=== PATIENT | female | born 1970 | race Caucasian/White ===

== ENCOUNTER 2019-05-29 10:22 | Observation (INO) | payer OTHER, SELFPAY ==
[2019-05-29] VITALS (23 sets, daily range): BP systolic 94–132; BP diastolic 49–79; PULSE 62–85; RESP 13–21; TEMP 36.3–37.1; O2SAT 93–100; BMI 33.7
--- NOTE | 2019-05-29 10:37 | ED_ITS ---
HPI - Female Genitourinary General: Chief complaint: Vaginal Bleeding Stated complaint: VAGINAL PAIN Time Seen by Provider: 05/29/19 10:37 History of Present Illness: HPI Narrative: Patient had an evisceration repair for a hysterectomy dehiscence done in March. Patient had sexual intercourse this morning with her spouse and noticed some bleeding and discomfort. Patient came in for further evaluation. Patient appears well. Patient appears in mild to moderate pain. Reports no bleeding at this time. Review of Systems General: Reports: 10 or more systems reviewed and unremarkable except in HPI and below : Reports: vaginal bleeding PFSH ED PFSH: Statuses (acute, chronic, etc) shown below reflect problem list status as previously entered and may not be historically accurate Medical History Hypothyroidism (Chronic) Surgical menopause (Chronic) Taking Effexor Surgical History History of hysterectomy (Acute 01/11/19) TLH with BSO. By Dr. Kang in [facility] Hx of tonsillectomy (Acute) S/P breast reconstruction, bilateral (Acute) Following prophylactic mastectomy S/P section (Acute 1996) with tubal ligation S/P laparoscopy (Acute 03/28/19) With vaginal cuff repair of vaginal cuff dehiscence with small bowel evisceration S/P mastectomy, bilateral (Acute) Prophylactic. Had pre-cancerous breast biopsy S/P tubal ligation (Acute 1996) Performed at time of section Family History Mother Breast cancer Diabetes Thyroid disease Hypertension Grandmother Breast cancer Family/Other Breast cancer 2 maternal aunt Cervical cancer maternal aunt Father Diabetes Heart disease Thyroid disease Hypertension Sister Hypertension Other Suicide Social History Smoking and tobacco status: former smoker Second hand smoke exposure: No Alcohol intake: current Alcohol intake frequency: holidays/special occasions only Alcohol type: wine Desire information about alcohol rehabilitation?: No Desire information about substance/drug rehabilitation?: No Counseling given: No Physical Exam Const: COMMON NORMALS: no apparent distress and oriented x3 GENERAL APPEARANCE: cooperative HENMT: COMMON NORMALS: normocephalic, external ears normal, EAC's normal, TM's normal bilaterally and external nose normal HEAD & SCALP: normal to inspection and normocephalic FACE & SINUS: normal facial exam NOSE: external nose normal GENERAL EAR: hearing not grossly impaired EXTERNAL EAR: Yes external ears normal EXTERNAL AUDITORY CANAL: EAC's normal TYMPANIC MEMBRANE: TM's normal bilaterally MOUTH: oral and palatal mucosa normal THROAT: posterior oropharynx normal Eye: COMMON NORMALS: PERRL and EOMs intact bilaterally PUPIL: Yes PERRL Neck/C-Spine: COMMON NORMALS: full ROM and no lymphadenopathy Lymph: LYMPHATIC: no lymphedema noted Chest: COMMONS NORMALS: inspection of chest normal and palpation of chest normal Resp: COMMON NORMALS: normal respiratory effort and clear to auscultation bilaterally AUSCULTATION: clear to auscultation bilaterally Cardio: COMMON NORMALS: regular rate and regular rhythm RATE: regular rate RHYTHM: regular rhythm GI: PALPATION: Yes tender (suprapubic) : SPECULUM EXAM - VAGINA: Yes other (gross blood in vault) SPECULUM EXAM - CERVIX: Yes other Back/Pelvis: COMMON NORMALS: thoracic and lumbar spine normal to inspection Extremity: COMMON NORMALS: normal to inspection GENERAL: No edema Neuro: COMMON NORMALS: oriented x3, moves all extremities and no focal motor deficits Psych: COMMON NORMALS: mental status grossly normal and cooperative Skin: COMMON NORMALS: no rashes or lesions noted GENERAL SKIN EXAM: no rashes or lesions noted Course ED course: 1110, Dr. Tello, OB-FELTING MACHINE OPERATOR HELPER locum, was present during vaginal exam and assumed care after noticing large amount of sanguinous fluid in vault, after suction of fluid small bowel was noted in the vaginal vault. He requested the general surgeon be called and discussed with patient going back into surgery for repeat repair of dihesced cuff. Vital Signs: Vital signs: Vital Signs Temperature 97.5 F L 05/29/19 15:00 Pulse Rate 85 05/29/19 15:00 Respiratory Rate 21 H 05/29/19 15:00 Blood Pressure 120/52 05/29/19 15:00 Pulse Oximetry 96 05/29/19 15:00 MDM - Female MDM Narrative: Medical decision making narrative: Patient comes in with c oncerns of dehiscence of vaginal hysterectomy. Patient had a similar episode back in March that was repaired. Patient was having sexual intercourse this morning and felt pain and then some bleeding was noted afterwards. Exam notes abdomen soft some suprapubic tenderness. Respirations were even lungs were clear to auscultation. Vital signs were stable. On pelvic exam it was noted gross amount of sanguineous fluid in the vaginal vault, Dr. Tello was present during the exam and assumed care and with further evaluation noted bowel present in the vaginal vault. Is apparent that patient has a repeat wound dehiscence of a vaginal hysterectomy surgery. Dr. Ashley was further consulted for secondary care and surgery. Patient was taken to surgery for further treatment and evaluation under Dr. Mejia guidance. Lab Data: Labs: Lab Results 05/29/19 05/29/19 05/29/19 Range/Units 11:23 11:43 11:43 WBC 3.6 L (4.0-10.0) 10^3/ uL RBC 4.45 (4.1-5.3) 10^6/u L Hgb 12.9 (11.5-15.3) g/dL Hct 39.4 (37.0-47.0) % MCV 88.5 (81-99) fL MCH 29.0 (28.0-34.0) pg MCHC 32.7 (30.0-36.0) g/dL RDW 13.1 (12.1-15.1) % Plt Count 180 (130-400) 10^3/c mm MPV 9.8 (7.4-10.4) fL Neut % (Auto) 68.0 % Lymph % (Auto) 24.0 % [place] % (Auto) 7.7 % Eos % (Auto) 0.0 % Baso % (Auto) 0.0 % Neut # (Auto) 2.5 (1.8-7.7) 10^3/u L Lymph # (Auto) 0.9 (0.8-4.8) 10^3/u L [place] # (Auto) 0.3 (0.2-0.9) 10^3/u L Eos # (Auto) 0.0 (0.0-0.8) 10^3/u L Baso # (Auto) 0.0 (0.0-0.1) 10^3/u L Nucleated RBC % (a uto) 0 % Nucleated RBCs # 0.0 /100WBC Sodium (136-145) mmol/L Potassium (3.5-5.1) mmol/L Chloride (98-107) mmol/L Carbon Dioxide (22-29) mmol/L Anion Gap (5-19) BUN (6-20) mg/dL Creatinine (0.5-0.9) mg/dL GFR Calculation (90-130) mL/min Glucose (65-115) mg/dL Calcium (8.5-10.5) mg/dL Total Bilirubin (0.15-1.2) mg/dL AST (0-32) U/L ALT (0-33) U/L Alkaline Phosphata se (35-105) IU/L Total Protein (6.6-8.7) g/dL Albumin (3.5-5.2) g/dL Globulin (1.3-4.6) g/dL Urine Color Red (Yellow) Urine Appearance Bloody A (CLEAR) Urine pH 8 H (5-7) Ur Specific Gravit y 1.015 (1.005-1.030) Urine Protein 3+ H (Negative) Urine Glucose (UA) Norm (Normal) Urine Ketones Negative (Negative) Urine Occult Blood 3+ H (Negative) Urine Nitrate Negative (Negative) Urine Bilirubin Neg (NEGATIVE) Urine Urobilinogen Norm (Negative) mg/dL Ur Leukocyte Sia ase Negative (Negative) Urine RBC >100 H (0-2) /hpf Urine WBC 15-25 H (0-5) /hpf Ur Squamous Epith Cells 5-10 H (0-5) Amorphous Sediment Trace Urine Bacteria 1+ H (NONE) Urine Mucus Trace Blood Type B Negative Antibody Screen Negative 05/29/19 Range/Units 11:43 WBC (4.0-10.0) 10^3/ uL RBC (4.1-5.3) 10^6/u L Hgb (11.5-15.3) g/dL Hct (37.0-47.0) % MCV (81-99) fL MCH (28.0-34.0) pg MCHC (30.0-36.0) g/dL RDW (12.1-15.1) % Plt Count (130-400) 10^3/c mm MPV (7.4-10.4) fL Neut % (Auto) % Lymph % (Auto) % [place] % (Auto) % Eos % (Auto) % Baso % (Auto) % Neut # (Auto) (1.8-7.7) 10^3/u L Lymph # (Auto) (0.8-4.8) 10^3/u L [place] # (Auto) (0.2-0.9) 10^3/u L Eos # (Auto) (0.0-0.8) 10^3/u L Baso # (Auto) (0.0-0.1) 10^3/u L Nucleated RBC % (a uto) % Nucleated RBCs # /100WBC Sodium 141 (136-145) mmol/L Potassium 4.1 (3.5-5.1) mmol/L Chloride 105 (98-107) mmol/L Carbon Dioxide 25 (22-29) mmol/L Anion Gap 15.1 (5-19) BUN 11 (6-20) mg/dL Creatinine 0.5 (0.5-0.9) mg/dL GFR Calculation 132.2 H (90-130) mL/min Glucose 104 (65-115) mg/dL Calcium 10.8 H (8.5-10.5) mg/dL Total Bilirubin 0.5 (0.15-1.2) mg/dL AST 31 (0-32) U/L ALT 49 H (0-33) U/L Alkaline Phosphata se 116 H (35-105) IU/L Total Protein 6.6 (6.6-8.7) g/dL Albumin 4.0 (3.5-5.2) g/dL Globulin 2.6 (1.3-4.6) g/dL Urine Color (Yellow) Urine Appearance (CLEAR) Urine pH (5-7) Ur Specific Gravit y (1.005-1.030) Urine Protein (Negative) Urine Glucose (UA) (Normal) Urine Ketones (Negative) Urine Occult Blood (Negative) Urine Nitrate (Negative) Urine Bilirubin (NEGATIVE) Urine Urobilinogen (Negative) mg/dL Ur Leukocyte Sia ase (Negative) Urine RBC (0-2) /hpf Urine WBC (0-5) /hpf Ur Squamous Epith Cells (0-5) Amorphous Sediment Urine Bacteria (NONE) Urine Mucus Blood Type Antibody Screen Discharge Plan Discharge Patient Disposition: Placed in Observation Admit Provider: Mike Tello Clinical Impression: Dehiscence of vaginal cuff Qualifiers: Encounter type: initial encounter Qualified Code(s): T81.31XA - Disruption of external operation (surgical) wound, not elsewhere classified, initial encounter Condition: Stable Referrals: Jordi Braga MD [Primary Care Provider] - Discharge Date/Time: 05/29/19 12:31 Coding Level of Care Code ED Foam Cutting Supervisor for Chg Fwd Exam Problem Focused
--- NOTE | 2019-05-29 11:34 | PC.NURSE ---
Pelvic exam performed at bedside by Tim Najera, PARUL and Dr Tello, OB-Kennel Assistant. CHaperoned by this nurse.
[2019-05-29] MEDS: lactated ringers 1,000 ML 999 ML IV (11:47)
--- NOTE | 2019-05-29 11:53 | P.HP_ITS ---
Providers/Chief Complaint Admitting Physician: Omer Primary PRINTED CIRCUIT BOARD PCB DRAFTSMAN: Omer Chief Complaint: abdominal pain, vaginal bleeding HPI PRINTED CIRCUIT BOARD PCB DRAFTSMAN History of Present Illness Catrina Manzo is a 49 year old female who presents to the emergency room with onset of lower abdominal pain discomfort and vaginal bleeding/spotting this morning after intercourse. Patient relates a history of having undergone laparoscopic total hysterectomy at [facility] 12 to 16 weeks ago. During her postoperative course approximately week 6 or 8 she had sudden onset of lower abdominal discomfort with bowel movement at that time she was noted to have evisceration of the vaginal cuff she was taken to the operating room by Dr. Randle and Dr. Woods underwent laparoscopic uroscopy and primary repair of the vaginal cuff dehiscence with [id number] 0 Vicryl sutures. Last seen by Dr. Woods 05/21/2019 doing well. Patient did have intercourse this morning followed by above chief complaint. 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 At this time Dr. Ashley covering general surgery has been contacted ORs been n otified plan is to proceed to the OR for repair. I have discussed findings and situation with patient and her spouse they have been counseled for surgery understands that this will be a chronic combined laparoscopic/vaginal approach and may or may not need to open her abdomen to complete repair. Also understand that it may be necessary to perform bowel repair/diversion (not likely). Risk of surgery have been explained to include general risk of infection bleeding damage to bowel bladder nerves vessels ureters other organs. Patient also understands that cannot guarantee will not have another dehiscence/evisceration of the vaginal cuff. Plan at this time will be to use delayed absorbable sutures to repair the vaginal cuff. Review of Systems Const: Denies: fever, chills, body aches or change in appetite Eyes: Denies: change in vision ENMT: Denies: painful swallowing Card: Denies: chest pain, palpitations or irregular heart rhythm Resp: Denies: shortness of breath or productive cough GI: Reports: abdominal pain; Denies: nausea, vomiting or vomiting blood : Reports: pelvic pain and pain during intercourse; Denies: flank pain, difficulty urinating, painful urination or urinary frequency Musc: Denies: extremity pain or extremity swelling Skin/Breast: Denies: rash Neuro: Denies: headache Psych: Denies: anxiety or depression Endo: Denies: excessive urination, tired all the time, hot flashes or heat intolerance José/Lymph: Denies: easy bruising or easy bleeding All/Imm: Denies: hives Medications/Allergies Allergies Allergy/AdvReac Type Severity Reaction Status Date / Time morphine Allergy vomiting Verified 04/22/19 08:08 tramadol [From Ultram] Allergy feels like Verified 04/22/19 08:08 she is disoriented [facility] PRINTED CIRCUIT BOARD PCB DRAFTSMAN Statuses (acute, chronic, etc) shown below reflect problem list status as previously entered and may not be historically accurate Medical History Hypothyroidism (Chronic) Surgical menopause (Chronic) Taking Effexor Surgical History History of hysterectomy (Acute 01/11/19) TL with BSO. By Dr. Kang in [facility] Hx of tonsillectomy (Acute) S/P breast reconstruction, bilateral (Acute) Following prophylactic mastectomy S/P section (Acute 1996) with tubal ligation S/P laparoscopy (Acute 03/28/19) With vaginal cuff repair of vaginal cuff dehiscence with small bowel evisceration S/P mastectomy, bilateral (Acute) Prophylactic. Had pre-cancerous breast biopsy S/P tubal ligation (Acute 1996) Performed at time of section Family History Mother Breast cancer Diabetes Thyroid disease Hypertension Grandmother Breast cancer Family/Other Breast cancer 2 maternal aunt Cervical cancer maternal aunt Father Diabetes Heart disease Thyroid disease Hypertension Sister Hypertension Other Suicide Social History Smoking and tobacco status: former smoker Second hand smoke exposure: No Alcohol intake: current Alcohol intake frequency: holidays/special occasions only Alcohol type: wine Desire information about alcohol rehabilitation?: No Desire information about substance/drug rehabilitation?: No Counseling given: No History History 3 Term 3 Miscarriages/Ectopic 0 0 Living Children 3 Other Female Reproductive History Hx Age of Menarche: 13 Duration of menses: 8-10 days Cycle Length: every 28 days Sexual History Hx Sexually Transmitted Diseases: No Have you ever tested positive for HIV?: No Contraception control method: Pills and Other (sponge, hysterectomy, and tubal ligation) Vitals/I&O/Wt Last Vital Signs Temp 98.1 F 05/29/19 10:30 Pulse 63 05/29/19 10:30 Resp 16 05/29/19 10:30 BP 112/67 05/29/19 10:30 Pulse Ox 98 05/29/19 10:30 Weight last 48 hrs Weight 92.079 kg Physical Exam Narrative: EXAM NARRATIVE: Alert and oriented somewhat anxious white female mesomorphic Skin clear no rashes HEENT grossly normal Lungs clear to auscultation Heart regular sinus rhythm Abdomen mildly obese soft nontender surgical scars consistent with history. Normal bowel sounds Pelvic examination: EXT/BUS unremarkable small amount of blood noted. Vaginal vault shows approximate 50 cc of bright red blood in the upper vault. Obvious disruption of the vaginal cuff with protrusion of small bowel into the upper to mid vagina. The bowel appears to be pink and healthy. Bimanual not performed secondary to vaginal cuff evisceration Extremities grossly intact Neurologic exam grossly unremarkable normal gait Data : 05/29/19 11:43 05/29/19 11:43 A&P Additional A&P Information 1. Evisceration of vaginal cuff, recurrent Discussed with patient and spouse. General surgery consulted plan is to go to the operating room for laparoscopy and repair of evisceration. Patient has been counseled permits have been signed. OR staff notified. Attestations Medical Necessity Statement*: Plan is to take patient to operating for acute surgical issue anticipate overnight overnight Time Spent in Patient Care: Greater than 35 minutes spent 45 minutes examining patient discussing situation with patient and spouse and counseling for surgery. Coding Level of Care Code Acute Automotive Service Director for Kgg Fwd Medical Decision Making Moderate Complexity Time Spent (min) 40 Comment 40 minute face to face with pt &/or spouse discussing findings and counseling for surgery
[2019-05-29 12:09] LABS: Hematocrit 39.4 % (37.0-47.0); Hemoglobin 12.9 g/dL (11.5-15.3); Lymphocytes # 0.9 10^3/uL (0.8-4.8); Mean Corpuscular HGB Conc 32.7 g/dL (30.0-36.0); Mean Corpuscular Volume 88.5 fL (81-99); Mean Platelet Volume 9.8 fL (7.4-10.4); Monocytes # 0.3 10^3/uL (0.2-0.9); Monocytes % 7.7 %; Neutrophils # 2.5 10^3/uL (1.8-7.7); Nucleated Red Blood Cells % 0 %; Platelet Count 180 10^3/cmm (130-400); Red Blood Count 4.45 10^6/uL (4.1-5.3); Red Cell Distribution Width 13.1 % (12.1-15.1); White Blood Count 3.6 10^3/uL (4.0-10.0)
[2019-05-29 12:24] LABS: Alanine Aminotransferase 49 U/L (0-33); Alkaline Phosphatase 116 IU/L (35-105); Anion Gap 15.1 (5-19); Aspartate Amino Transferase 31 U/L (0-32); Blood Urea Nitrogen 11 mg/dL (6-20); Calcium 10.8 mg/dL (8.5-10.5); Carbon Dioxide 25 mmol/L (22-29); Chloride 105 mmol/L (98-107); Globulin 2.6 g/dL (1.3-4.6); Glomerular Filtration Rate 132.2 mL/min (90-130); Glucose 104 mg/dL (65-115); Potassium 4.1 mmol/L (3.5-5.1); Sodium 141 mmol/L (136-145); Total Bilirubin 0.5 mg/dL (0.15-1.2); Total Protein 6.6 g/dL (6.6-8.7)
[2019-05-29] MEDS: gabapentin 300 mg Capsule PO (12:35)
[2019-05-29 12:37] LABS: Specific Gravity, Urine 1.015 (1.005-1.030); Urine Appearance Bloody (CLEAR); Urine Color Red (Yellow); pH Urine 8 (5-7)
--- NOTE | 2019-05-29 12:37 | P.ANESASSM_ITS ---
Pre-Anesthetic Assessment Pre-Anesthetic Assessment: Height/Weight: Height 1.65 m Weight 92.079 kg Temp Pulse Resp BP Pulse Ox 98.1 F 62 18 125/79 100 05/29/19 10:30 05/29/19 12:30 05/29/19 12:30 05/29/19 12:30 05/29/19 12:30 Preop Diagnosis: vaginal cuff eviseration, recurrent Proposed Procedure: Operation Date: 05/29/19 12:25 Proposed Procedures p Laparoscopy(Not Applicable) - Hayder Ashley MD Last Intake: 23:59 Exam: Pre-Anes Outpt Exam: No alert, oriented x 3, clear to auscultation bilaterally and regular rate & rhythm Airway: Submandibular: WNL Cervical ROM: WNL MP: 1 Metabolic: Metabolic: Thyroid Anesthetic Plan: ASA status: 2E Anesthesia: General Meds/Allergies Current Medications: Current Medications Generic Name Dose Route Start Last Admin Trade Name Freq PRN Reason Stop Dose Admin Lactated Ringer's 1,000 mls @ 999 m ls/hr 05/29/19 11:40 05/29/19 11:47 Lactated Ringers IV 05/29/19 12:40 999 mls/hr .Q1H1M ONE Administration PFSH Anesthesia PFSH: Medical History Hypothyroidism (Chronic) Surgical menopause (Chronic) Taking Effexor Surgical History History of hysterectomy (Acute 01/11/19) TLH with BSO. By Dr. Kang in [facility] Hx of tonsillectomy (Acute) S/P breast reconstruction, bilateral (Acute) Following prophylactic mastectomy S/P section (Acute 1996) with tubal ligation S/P laparoscopy (Acute 03/28/19) With vaginal cuff repair of vaginal cuff dehiscence with small bowel evisceration S/P mastectomy, bilateral (Acute) Prophylactic. Had pre-cancerous breast biopsy S/P tubal ligation (Acute 1996) Performed at time of section Family History Mother Breast cancer Diabetes Thyroid disease Hypertension Grandmother Breast cancer Family/Other Breast cancer 2 maternal aunt Cervical cancer maternal aunt Father Diabetes Heart disease Thyroid disease Hypertension Sister Hypertension Other Suicide Social History Smoking and tobacco status: former smoker Second hand smoke exposure: No Alcohol intake: current Alcohol intake frequency: holidays/special occasions only Alcohol type: wine Desire information about alcohol rehabilitation?: No Desire information about substance/drug rehabilitation?: No Counseling given: No Data Anesthesia CBC & Chem 7: 05/29/19 11:43 05/29/19 11:43 Other Labs: Laboratory Results - last 48 hr 05/29/19 05/29/19 05/29/19 11:43 11:43 11:43 WBC 3.6 L RBC 4.45 Hgb 12.9 Hct 39.4 MCV 88.5 MCH 29.0 MCHC 32.7 RDW 13.1 Plt Count 180 MPV 9.8 Neut % (Auto) 68.0 Lymph % (Auto) 24.0 [place] % (Auto) 7.7 Eos % (Auto) 0.0 Baso % (Auto) 0.0 Neut # (Auto) 2.5 Lymph # (Auto) 0.9 [place] # (Auto) 0.3 Eos # (Auto) 0.0 Baso # (Auto) 0.0 Nucleated RBC % (auto) 0 Nucleated RBCs # 0.0 Sodium 141 Potassium 4.1 Chloride 105 Carbon Dioxide 25 Anion Gap 15.1 BUN 11 Creatinine 0.5 GFR Calculation 132.2 H Glucose 104 Calcium 10.8 H Total Bilirubin 0.5 AST 31 ALT 49 H Alkaline Phosphatase 116 H Total Protein 6.6 Albumin 4.0 Globulin 2.6 Blood Type B Negative Antibody Screen Negative Cardiac Studies: No Data to Display
[2019-05-29 12:38] LABS: Add Urine Microscopic? YES; Bilirubin Urine Neg (NEGATIVE); Blood Urine 3+ (Negative); Glucose Urine UA Norm (Normal); Ketones Urine Negative (Negative); Leukocyte Esterase Urine Negative (Negative); Nitrate Urine Negative (Negative); Protein Urine 3+ (Negative); Urobilinogen Urine Norm (Negative)
[2019-05-29 12:47] LABS: RBC Urine >100 /hpf (0-2)
[2019-05-29 13:06] LABS: Amorphous Sediment Urine TRACE; Bacteria Urine 1+; Mucus Urine TRACE; WBC Urine 15-25 /hpf (0-5)
[2019-05-29 13:07] LABS: Add Urine Culture? No
--- NOTE | 2019-05-29 13:59 | PM.OP ---
Operative Report Date of procedure: May 29, 2019 Pre-op Diagnosis: vaginal cuff eviseration, recurrent Post-op diagnosis: same Procedure Done: Diagnostic laparoscopy with evacuation of pelvic hematoma. Pathology: none sent Surgeon: Hayder Ashley Filter Press Tender Head: Mike Tello Anesthesia: General Estimated blood loss (mL): 5 Complications: None. Condition: stable Disposition: other (Patient left in the OR for Dr. Tello's procedure conclusion.) Brief History: This is a 49-year-old white female who had undergone a laparoscopic scopic assisted vaginal hysterectomy in [place] several months previously. Approximately 8 weeks postoperatively, she apparently had had a vaginal cuff disruption with evisceration of small bowel into the vaginal canal. She had undergone laparoscopic reduction of her small bowel and repair of the vaginal cuff at that time. After having intercourse this morning, the patient once again had bleeding and came to the emergency room. A pelvic exam revealed a small amount of eviscerated but healthy appearing small bowel in the vaginal vault. Dr. Tello asked if I would assist him in surgery from a laparoscopic orientation. Procedure: The patient was brought to the Operating Room and was placed in a supine position on the Operating Room table. General endotracheal anesthesia was induced. The patient was then placed in lithotomy position by Dr. Tello. A digital exam at that time by Dr. Tello revealed no remaining bowel within the vaginal vault. The abdomen and perineum were prepped and draped in a sterile fashion. A small vertical incision was carried out in the superior aspect of the umbilicus. Blunt dissection was carried out down to the fascia, which was grasped with a Tricia clamp. A stay suture of 0 Vicryl was placed on either side of the midline and the midline fascia was incised. The underlying peritoneum was opened bluntly and the S[place]a port was placed directly into the peritoneal cavity and was held in place with the inflatable balloon. The peritoneal cavity was insufflated with carbon dioxide. The laparoscope was used to inspect the abdominal cavity. The patient had some light adhesions just to the left side of the umbilicus as well as a small adhesion on the right side of the abdomen laterally. No other gross abnormalities were initially noted. 2 additional 5 mm ports were placed in the lower abdomen under direct vision, one on either side. The patient was placed in Trendelenburg and the pelvis was inspected. The patient had some clotted blood in the pelvis which was suctioned out and the vaginal cuff was easily identifiable and appeared to be completely disrupted. A sterile glove with some sterile Curlex within it had been used to occlude the vaginal vault to maintain the pneumoperitoneum. The patient had a very small oozing area on the cuff on the left side posteriorly. All of the small bowel in the pelvis appeared to be healthy. Dr. Tello then proceeded with repair of the vaginal cuff from the peritoneal side. See his dictation for details. After his repair was done the abdomen was reinsufflated and the repair appeared to be in very good condition with no ongoing evidence of bleeding or an air leak. The Begum port was removed from the abdominal wall and the sutures of Vicryl were tied to each other at the umbilicus, but one of the sutures broke during closure. An additional seakgl-[id number]-gmvji suture of 0 Vicryl was placed closing the fascial defect so that it was airtight. The remaining ports were removed from the abdominal wall and the pneumoperitoneum was evacuated in the process. All skin incisions were closed using inverted interrupted sutures of 4-0 Vicryl. Benzoin and Steri-Strips were placed over the incisions and sterile Band-Aids followed. The patient was left in the operating room while Dr. Tello finished up final suturing of his repair from the perineal side.
--- NOTE | 2019-05-29 14:18 | SUR.PHASEI ---
1413 PATIENT TO PACU AT THIS TIME. RR EVEN AND UNLABORED. 3 STABS NOTED TO ABDOMEN, COVERED WITH BANDAIDS, AIDAN PAD IN PLACE. PATIENT RESPONDS TO VERBAL STIMULI. REPORTS ACHY PAIN
[2019-05-29] MEDS: fentaNYL 50 mcg/mL INJ 2mL IVP ×2 (14:27→14:35)
--- NOTE | 2019-05-29 14:37 | P.OP_ITS ---
Brief Operative Note: Date of procedure: 05/29/19 Pre-op diagnosis: vaginal cuff eviseration Post-op diagnosis: same Procedure Done: laparoscopy (Dr Ashley) REpair vaginal cuff dehisence (Omer) cystoscopy (Omer) Estimated blood loss (mL): 150 Complications: none Post-op Plan: keep overnight discharge AM PODS 1 Condition: stable Disposition: floor Coding Level of Care Code Acute Xerox Machine Assembler for Janay Peña
--- NOTE | 2019-05-29 14:40 | SUR.PHASEI ---
1430 PATIENT HAS STATES SEVERAL TIMES WHILE BEING IN RECOVERY THAT SHE NEEDS A PSYCH CONSULT. DR. SOLIZ NOTIFIED. REQUESTED FOR A PSYCH CONSULT TO BE PUT IN BY THIS NURSE OR PRIMARY NURSE IN OB. I WILL PASS THIS ON TO PATIENTS PRIMARY CARE NURSE.
--- NOTE | 2019-05-29 14:41 | PM.OP ---
Operative Report Date of procedure: May 29, 2019 Pre-op Diagnosis: vaginal cuff eviseration, recurrent Post-op diagnosis: same Post-op Findings: 3 cm defect vaginal cuss. bowel normal. cysto showed normal bladder ureters patent Procedure Done: Laparoscopy (Dr. Ashley) Repair of vaginal cuff dehiscence (Omer) Cystoscopy (Omer) Pathology: none sent Surgeon: Mike Tello Visitor Service Assistant: Hayder Ashley Anesthesia: General Estimated blood loss (mL): 150 IV fluids (mL): 1,000 Urine output (mL): 150 Findings: 3 cm defect in vaginal cuff, bowel normal in appearance good motility good color. Cystoscopy showed bladder to be intact no foreign body ureters patent good approximation of vaginal cuff defect at the end of the case Disposition: floor Brief History: 49-year-old multiparous female history of laparoscopic total hysterectomy and bilateral salpingectomy performed at [facility] approximately 4 months ago. Postoperative course was complicated by vaginal cuff dehiscence with evisceration of small bowel at about 8 to 10 weeks postop. Underwent repair of same. This morning after during intercourse patient had abdominal pain followed by bleeding presented to the emergency department which she has recurrent evisceration of small bowel through vaginal cuff dehiscence. Procedure: Patient and spouse were notified of vaginal cuff evisceration. Counseled for surgery understands the risk of surgery and understands that plan is to proceed laparoscopically possible laparotomy with repair of vaginal cuff. We will perform cystoscopy all questions been answered. Patient was taken to the operating room at [facility] underwent general tracheal anesthesia was ad received IV Ancef 2 g. In the operating [facility] On the and had undergone general tracheal anesthesia. The abdomen was prepped and draped in usual manner Wise catheter was placed and vaginal occlusive device was placed. Laparoscopy was then performed by Dr. Ashley please see his dictation. After ensuring known intra-abdominal adhesions obvious damage to bowel we then proceeded to close the vaginal cuff vaginally. With elevation of the legs in the Jean stirrups was able to gain access to the vaginal vault the cuff was then grasped with long Allis clamp and [id number] sutures of #1 PDS were used to close the cuff initially side to side in the posterior aspect of the vagina and then top to bottom in the lateral fornix and upper aspect. Dr. Ashley did assist with vaginal retake traction during this portion of the case. Once the cuff was closed the vaginal cuff was then inspected laparoscopically once again by with no abnormalities noted. This then completed the laparoscopic portion of the case. Reinforcement sutures of #1 PDS were then placed. Once it was felt it was adequate closure of the vaginal vault cystoscopy was performed 70 degrees cystoscope was placed the bladder was inspected in its entirety and no foreign body body/suture is noted in the bladder both ureters were patent to the flow of indigo carmine. At this point the cystoscope was removed. All instruments removed from the vagina patient was then awakened extubated transferred from the operative gurney taken to recovery in good condition. Were no complications. We will keep the patient overnight plan discharge home in a.m. we will ask her to see dietary prior to discharge.
[2019-05-29] MEDS: HYDROmorphone 1 mg/mL INJ 1 mL 0.5 MG IVP (14:43)
--- NOTE | 2019-05-29 15:21 | SUR.PHASEI ---
1504 PATIENT TO OB AT THIS TIME. A/OX3. RR EVEN AND UNLABORED. NO DISTRESS. RATES PAIN 4/10, WANTS PAIN PILL ON THE FLOOR. DRESSINGS TO ABDOMEN, CDI, COVERED WITH BANDAIDS.
[2019-05-29] MEDS: oxyCODONE-APAP 5-325 mg Tablet 1 TAB PO ×2 (15:41→22:11)
[2019-05-29] MEDS: famotidine 20 mg/2 mL INJ IVP (15:42)
[2019-05-29] MEDS: ondansetron 4 MG Tablet PO (22:10)
[2019-05-30 03:51] VITALS: RESP 16
[2019-05-30] MEDS: oxyCODONE-APAP 5-325 mg Tablet 1 TAB PO ×2 (03:51→12:06)
[2019-05-30] MEDS: ondansetron 4 MG Tablet PO ×2 (04:51→12:09)
[2019-05-30 06:20] VITALS: BP 112/70; PULSE 72; RESP 16; TEMP 36.9
[2019-05-30] MEDS: simethicone 80 mg Chew PO (09:36)
[2019-05-30] MEDS: docusate sodium 100 mg Capsule PO (09:36)
[2019-05-30] MEDS: acetaminophen 325 mg Tablet 650 MG PO (09:44)
[2019-05-30 10:55] VITALS: BP 110/66; PULSE 74; RESP 17; TEMP 36.9; O2SAT 98
[2019-05-30 12:06] VITALS: RESP 18
--- NOTE | 2019-05-30 14:13 | P.DS_ITS ---
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 Date of Admission: 05/29/19 14:22 Date of Discharge: 05/30/19 Attending Provider at Admission: Mike Tello DO Attending Provider at Discharge: Mike Tello DO Primary Care Provider: Jordi Braga MD Diagnoses at Discharge Other Information Additional DC diagnoses/information: Dehiscence of vaginal cuff with small bowel evisceration Hypothyroidism Surgical menopause Reason for Visit Reason for Visit: Reason For Visit: abdominal pain, vaginal bleeding Physical Exam Urinary Catheter Management^: Wise: Cath Placed During This Visit: yes, but has since been removed by the nurse Urinary Catheter Date of Insertion: 05/29/19 Urinary Catheter Time of Insertion: 13:15 Date Urinary Catheter Removed: 05/29/19 Time Urinary Catheter Discontinued: 14:00 Discharge Data Data Completed and Pending: Pending at discharge Category Date Time Status ES surgery / GI i mages Routine Exams 05/29/19 12:30 Taken Vitals: Last Vital Signs Temp 98.4 F 05/30/19 06:20 Pulse 72 05/30/19 06:20 Resp 18 05/30/19 12:06 BP 112/70 05/30/19 06:20 Pulse Ox 94 05/29/19 18:40 Discharge Plan Discharge Condition: Stable Prescriptions: No Action ibuprofen 200 mg capsule 200 mg PO BID PRNRF: 0 venlafaxine 75 mg tablet 75 mg PO ONCE RF: 0 levothyroxine 125 mcg capsule 125 mcg PO .once a week RF: 0 levothyroxine [Synthroid] 112 mcg tablet 112 mcg PO .6 days a week RF: 0 Discharge Orders: Discharge Order (Routine); Ordered 05/30/19 Ordered By: Mike Tello Referrals: Jordi Braga MD [Primary Care Provider] - Coding Level of Care Code Acute Supervisor Cigar Processing for Chg Mariana
--- NOTE | 2019-05-30 14:16 | PM.OBGYDC ---
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 Patient presents with recurrent dehiscence of vaginal cuff and small bowel evisceration. Underwent combined laparoscopy with vaginal repair of vaginal cuff uncomplicated Qualifiers: Encounter type: initial encounter Qualified Code(s): T81.31XA - Disruption of external operation (surgical) wound, not elsewhere classified, initial encounter (2) Hypothyroidism: Status: Chronic Problem details: Stable patient is to continue home medications (3) Surgical menopause: Status: Chronic Problem details: Taking Effexor. Stable patient is to continue home medications Reason for Visit Reason for Visit: Reason For Visit: abdominal pain, vaginal bleeding Physical Exam Urinary Catheter Management^: Wise: Cath Placed During This Visit: yes, but has since been removed by the nurse Urinary Catheter Date of Insertion: 05/29/19 Urinary Catheter Time of Insertion: 13:15 Date Urinary Catheter Removed: 05/29/19 Time Urinary Catheter Discontinued: 14:00 Discharge Data Data Completed and Pending: Pending at discharge Category Date Time Status ES surgery / GI i mages Routine Exams 05/29/19 12:30 Taken Vitals: Last Vital Signs Temp 98.4 F 05/30/19 06:20 Pulse 72 05/30/19 06:20 Resp 18 05/30/19 12:06 BP 112/70 05/30/19 06:20 Pulse Ox 94 05/29/19 18:40 Discharge Plan Discharge Condition: Stable Prescriptions: No Action ibuprofen 200 mg capsule 200 mg PO BID PRNRF: 0 venlafaxine 75 mg tablet 75 mg PO ONCE RF: 0 levothyroxine 125 mcg capsule 125 mcg PO .once a week RF: 0 levothyroxine [Synthroid] 112 mcg tablet 112 mcg PO .6 days a week RF: 0 Discharge Orders: Discharge Order (Routine); Ordered 05/30/19 Ordered By: Mike Tello Referrals: Jordi Braga MD [Primary Care Provider] - Coding Level of Care Code Acute Rug Inspector for Chg Fwd Diagnoses Dehiscence of vaginal cuff T81.31XA Encounter type: initial encounter Hypothyroidism E03.9 Surgical menopause E89.40
--- NOTE | 2019-05-30 14:17 | PM.OBGYDC ---
Discharge Providers VISITOR SERVICES ASSOCIATE Date of Admission: 05/29/19 14:22 Date of Discharge: 05/30/19 Attending Provider at Admission: Mike Tello DO Attending Provider at Discharge: Mike Tello DO Primary Care Provider: Jordi Braga MD Diagnoses at Discharge Discharge Diagnosis (1) Dehiscence of vaginal cuff: Status: Acute Problem details: This is a recurrent evisceration. Patient presents with recurrent dehiscence of vaginal cuff and small bowel evisceration. Underwent combined laparoscopy with vaginal repair of vaginal cuff uncomplicated Qualifiers: Encounter type: initial encounter Qualified Code(s): T81.31XA - Disruption of external operation (surgical) wound, not elsewhere classified, initial encounter (2) Hypothyroidism: Status: Chronic Problem details: Stable patient is to continue home medications (3) Surgical menopause: Status: Chronic Problem details: Taking Effexor. Stable patient is to continue home medications Reason for Visit Reason for Visit: Reason For Visit: abdominal pain, vaginal bleeding Hospital Course Discharge Summary: Patient was seen in the emergency department with lower abdominal pain and bleeding. Was found to have recurrent dehiscence of vaginal cuff with small bowel evisceration. Was taken directly to the operating room on the day of admission for repair of same. Laparoscopy was performed the small bowel was unremarkable with no evidence of injury. Vaginal cuff is repaired with [id number] sutures of #1 PDS. Cystoscopy showed bladder to be intact ureters patent. Patient was kept overnight and discharged home postop day 1 in good condition plan to have follow-up with me in 1 week She is to resume preadmission medications is advised to remain on stool softeners. Recommend Tylenol thousand milligrams every 6 hours and ibuprofen 800 every 8 hours as needed for pain recommend warm moist heat to the abdomen 3 times daily Patient is instructed to have vaginal rest for 4 months will be seen in 1 week for follow-up. Referral was given to dietary to enhance wound healing at patient request psych consult was placed. Physical Exam Narrative: EXAM NARRATIVE: Alert and oriented no acute distress HEENT grossly normal Lungs clear Heart regular sinus rhythm Abdomen soft nontender good bowel sounds laparoscopic incisions unremarkable slight bruising around the umbilical incision. Extremities grossly intact no edema no pain Pelvic exam deferred Urinary Catheter Management^: Wise: Cath Placed During This Visit: yes, but has since been removed by the nurse Urinary Catheter Date of Insertion: 05/29/19 Urinary Catheter Time of Insertion: 13:15 Date Urinary Catheter Removed: 05/29/19 Time Urinary Catheter Discontinued: 14:00 Discharge Data Data Completed and Pending: Pending at discharge Category Date Time Status ES surgery / GI i mages Routine Exams 05/29/19 12:30 Taken Procedures Performed: Diagnostic laparoscopy Suture repair of vaginal cuff Cystoscopy Vitals: Last Vital Signs Temp 98.4 F 05/30/19 06:20 Pulse 72 05/30/19 06:20 Resp 18 05/30/19 12:06 BP 112/70 05/30/19 06:20 Pulse Ox 94 05/29/19 18:40 Discharge Plan Discharge Patient Disposition: Home, Self-Care Condition: Stable Prescriptions: No Action ibuprofen 200 mg capsule 200 mg PO BID PRNRF: 0 venlafaxine 75 mg tablet 75 mg PO ONCE RF: 0 levothyroxine 125 mcg capsule 125 mcg PO .once a week RF: 0 levothyroxine [Synthroid] 112 mcg tablet 112 mcg PO .6 days a week RF: 0 Discharge Orders: Discharge Order (Routine); Ordered 05/30/19 Ordered By: Mike Tello Referrals: Jordi Braga MD [Primary Care Provider] - Discharge Diet: Usual diet Discharge Activity: Limit activity as instructed Patient Instructions: Posterior Vaginal Repair (DC), OB Discharge Report, OB Laproscopic Surgery - [facility] Activity Restrictions/Additional Instructions: Activity as tolerated patient is advised no heavy lifting in particular no lifting greater than 5 to 10 pounds. Slowly increase activity over the next [address] able. Vaginal rest for 4 months. Discharge Attestations VISITOR SERVICES ASSOCIATE Time Spent in Discharge Care*: greater than 30 min Coding Level of Care Code Acute Middle School Band Teacher for Chg Fwd Diagnoses Dehiscence of vaginal cuff T81.31XA Encounter type: initial encounter Hypothyroidism E03.9 Surgical menopause E89.40
[2019-05-30 15:20] VITALS: BP 115/73; PULSE 97; RESP 15; TEMP 37.1; O2SAT 97
== END 2019-05-30 15:30 | disposition home or self-care (01) ==
LOC: ER 11:24 → OR 11:34 → OBGYN 14:22
PROVIDERS: Absent Provider Surgery; Admitting Provider Obstetrics & Gynecology Female Pelvic Medicine and Reconstructive Surgery; Emergency Provider Nurse Practitioner Family; Visit Provider Obstetrics & Gynecology Female Pelvic Medicine and Reconstructive Surgery
PROC: (CPT 49320; principal; 2019-05-29 12:25)
PROC: 0TJB8ZZ Inspection of Bladder, Via Natural or Artificial Opening Endoscopic (ICD-10-PCS; CPT 52000; 2019-05-29 12:25)
PROC: 0UQG0ZZ Repair Vagina, Open Approach (ICD-10-PCS; CPT 13160; 2019-05-29 12:25)
DX: T81.31XA Disruption of external operation (surgical) wound, not elsewhere classified, initial encounter (principal); E03.9 Hypothyroidism, unspecified; E89.40 Asymptomatic postprocedural ovarian failure; Z82.49 Family history of ischemic heart disease and other diseases of the circulatory system; Z83.3 Family history of diabetes mellitus; Z90.710 Acquired absence of both cervix and uterus
CPT/HCPCS: 13160; 12345; 36415; 80053; 81001; 85025; 86850; 86900; 96360; 96361; 96365; 96367; 96375; 99282; 99283; 99285; A9270; G0378; J0131; J0690; J1100; J1170; J2001; J2250; J2405; J2710; J3010; J3490; Q0162

== ENCOUNTER → 2019-06-07 10:08 | Outpatient (BNVA) | payer OTHER, SELFPAY | PROVIDERS: Visit Provider Obstetrics & Gynecology Female Pelvic Medicine and Reconstructive Surgery | DX: R30.0 Dysuria (principal); Z48.89 Encounter for other specified surgical aftercare | CPT/HCPCS: 81003 ==

== ENCOUNTER → 2019-06-16 14:15 | Outpatient (BNVA) | payer OTHER, SELFPAY | PROVIDERS: Visit Provider Obstetrics & Gynecology Female Pelvic Medicine and Reconstructive Surgery | DX: Z48.89 Encounter for other specified surgical aftercare (principal); R30.0 Dysuria; N76.0 Acute vaginitis | CPT/HCPCS: 87086 ==

== ENCOUNTER 2019-06-17 14:40 | Outpatient (CLI) | payer OTHER, SELFPAY ==
--- NOTE | 2019-06-17 14:56 | CT_ITS ---
WS: [id number] CT PELVIS WITH CONTRAST HISTORY: RECTAL PAIN TECHNIQUE: Contiguous imaging is performed of the pelvis without contrast. Coronal and sagittal refor mats are reviewed. All CT scans at [facility] use at least one of these dose optimization techniques: automated exposure control; mA and/or kV adjustment per patient size (includes targeted exams where dose is matched to clinical indication); or iterative reconstruction. DLP: 1914.01 mGy.cm COMPARISON: 03/28/2020. Fluid collection with enhancing wall abutting the vaginal cuff measures 4.5 x 3.6 x 4.1 cm. Mass exte nds to the vaginal cuff but also abuts the posterior sigmoid. Consistent with a small abscess. Suspec t there may be multifocal small abscesses at the site of the vaginal cuff extending anteriorly. There is a moderate amount of perirectal fat stranding. Small amount of fluid in the RIGHT adnexa. Notified Mike Tello DO at 06/17/2019 4:[address]/CT pelvis w con* [id number] IMPRESSION: 1. Focal abscess in the pelvis inseparable from the vaginal cuff measures 4.5 x 3.6 x 4.1 cm. 2. Additional ill-defined fluid collection in the RIGHT adnexa may be a develo ping abscess.
== END 2019-06-17 14:41 | disposition home or self-care (01) ==
LOC: RAD 14:44
PROVIDERS: Visit Provider Obstetrics & Gynecology Female Pelvic Medicine and Reconstructive Surgery
DX: K62.89 Other specified diseases of anus and rectum (principal); N73.9 Female pelvic inflammatory disease, unspecified
CPT/HCPCS: 72193; Q9967

== ENCOUNTER 2019-06-18 10:04 | Day surgery (SDC) | payer OTHER, SELFPAY ==
[2019-06-17 17:42] VITALS: BMI 34.1
[2019-06-18] VITALS (11 sets, daily range): BP systolic 104–125; BP diastolic 51–83; PULSE 79–87; RESP 15–22; TEMP 36.6–36.9; O2SAT 93–100
[2019-06-18] MEDS: gabapentin 300 mg Capsule PO (11:02)
[2019-06-18] MEDS: phenazopyridine 100 mg Tablet 200 MG PO (11:02)
[2019-06-18] MEDS: CELEcoxib 200 mg Capsule 400 MG PO (11:02)
[2019-06-18] MEDS: lactated ringers 1,000 ML 999 ML IV (11:03)
--- NOTE | 2019-06-18 11:21 | ANES.PREANE2 ---
Pre-Anesthetic Assessment Pre-Anesthetic Assessment: Height/Weight: Height 1.68 m Weight 92.986 kg Preop Diagnosis: pelvic abscess Proposed Procedure: Operation Date: 06/18/19 11:50 Proposed Procedures p Laparoscopy incision and drainage of abscess of pelvic cuff(Not Applicable) - Mike Tello DO Last intake: Intake Last Liquid Date 06/18/19 Last Liquid Time 07:00 Last Solid Date 06/17/19 Last Solid Time 18:00 Exam: Pre-Anes Outpt Exam: alert, oriented x 3, clear to auscultation bilaterally and regular rate & rhythm Airway: Submandibular: WNL Cervical ROM: WNL MP: 1 Metabolic: Metabolic: Thyroid Comments: 27 years without reecent change Anesthetic Plan: ASA status: 2 Anesthesia: General Meds/Allergies Current Medications: Current Medications Generic Name Dose Route Start Last Admin Trade Name Freq PRN Reason Stop Dose Admin Lactated Ringer's 1,000 mls @ 999 m ls/hr 06/18/19 10:30 06/18/19 11:03 Lactated Ringers IV 06/18/19 11:30 999 mls/hr .Q1H1M ONE Administration PFSH Anesthesia PFSH: Social History Smoking and tobacco status: former smoker Second hand smoke exposure: No Alcohol intake: current Alcohol intake frequency: holidays/special occasions only Alcohol type: wine Desire information about alcohol rehabilitation?: No Data Anesthesia Cardiac Studies: No Data to Display
[2019-06-18] MEDS: scopolamine 1.5 Patch 1 PATCH TRANSDERMA (11:38)
[2019-06-18 11:41] LABS: Hematocrit 35.7 % (37.0-47.0); Hemoglobin 11.7 g/dL (11.5-15.3); Lymphocytes # 0.9 10^3/uL (0.8-4.8); Lymphocytes % 18.4 %; Mean Corpuscular HGB Conc 32.8 g/dL (30.0-36.0); Mean Corpuscular Hemoglobin 30.1 pg (28.0-34.0); Mean Corpuscular Volume 91.8 fL (81-99); Mean Platelet Volume 9.6 fL (7.4-10.4); Monocytes # 0.4 10^3/uL (0.2-0.9); Neutrophils # 3.4 10^3/uL (1.8-7.7); Neutrophils % 72.4 %; Nucleated Red Blood Cells % 0 %; Platelet Count 224 10^3/cmm (130-400); Red Blood Count 3.89 10^6/uL (4.1-5.3); Red Cell Distribution Width 13.2 % (12.1-15.1); White Blood Count 4.7 10^3/uL (4.0-10.0)
[2019-06-18 11:55] LABS: Blood Urea Nitrogen 13 mg/dL (6-20); Carbon Dioxide 26 mmol/L (22-29); Chloride 102 mmol/L (98-107); Glomerular Filtration Rate 107.2 mL/min (90-130); Glucose 96 mg/dL (65-115); Osmolality Calculated 286 mOsm/kg (285-295); Sodium 140 mmol/L (136-145)
[2019-06-18] MEDS: fentaNYL 50 mcg/mL INJ 2mL IVP ×2 (13:55→14:00)
[2019-06-18] MEDS: meperidine 50 mg/mL INJ 12.5 MG IVP (14:07)
--- NOTE | 2019-06-18 14:12 | SUR.PHASEI ---
1348 PT TO PACU SLEEPY WITH ORAL AIR WAY IN PLACE GOOD RESP NOTED ABD SOFT 1352 PT AWAKES ORAL AIRWAY OUT, PT WITH SHIVERING UNCONTROLLED WARM BLANKETS X 4 TO PT SEE PAIN MEDS GIVEN 1407 SEE MED GIVEN FOR CONTINUED SHIVERING AND PT C/O OF PAIN OF 7 1415 PT SLEEPS IF NOT DISTURBED, VSS. PT NOW ON 3LNC
[2019-06-18] MEDS: oxyCODONE-APAP 5-325 mg Tablet 1 TAB PO (14:38)
--- NOTE | 2019-06-18 17:28 | PM.OP ---
Operative Report Date of procedure: June 18, 2019 Pre-op Diagnosis: pelvic abscess Post-op diagnosis: same Post-op Diagnosis: Pelvic Abscess Post-op Findings: vaginal cuff, intact well approximated. filmy adhesions to left side walll, vaginal cuff. small bowel adreswive to right cuff, sidecaqll in 4-5 cm phlegmon Procedure Done: operative laparoscopy relaease of pelvic adhesions drainage and irrigation of pelvic phlegamon Specimens removed/disposition: fragments of phlegmon Pathology: pelvic adhesions; large phlegmon right cuff/pelvis Surgeon: Mike Tello Anesthesia: General Estimated blood loss (mL): 25 IV fluids (mL): 1,400 Urine output (mL): 250 Complications: none Findings: cuff intact, well approximated; filmy adhesions left side of cuff. 4-5 cm phlegmon right cuff and sidewall, involving small bowel Condition: stable Disposition: PACU Brief History: 2 y/o multiparous lady s/p TLH approximatelt 7 months ago, history of one vag cuff dehiscence with small bowel evisceration approximately 10 to 12 weeks after her first primary surgery after her first primary surgery. This was repaired, then approximately 10 weeks after her initial repair she suffered another cuff dehiscence/evisceration during intercourse. That was repaired by myself with 0 PDS under laparoscopic guidance from general surgery. Patient has now 2 weeks history Increasing difficulty with pain with defecation pelvic pressure 8 is started to have a brownish discharge recent CT scan showed a 4 to 5 cm abscess top cuff layer along the sigmoid. Patient has received antibiotics however at this time is a bit it is old patient of the postsurgical debridement/irrigation and drainage of cuff abscess so as to decrease the likelihood of breakdown of the repeat repair of the vaginal cuff Procedure: Patient was taken to the operating room [facility] for laparoscopy. Plan was to remove/drain pelvic abscess. She has been counseled per resident's. Patient did receive preoperative antibiotics in the operating room transferred to operating table underwent endotracheal anesthesia placed in dorsolithotomy position for operative laparoscopy. Exam under anesthesia was performed was visualized was normal there were no defects of the cuff palpable no masses palpable. He proceeded with laparoscopy the infraumbilical folds infiltrated with 0.5% Marcaine small vertical incision was made 5 mm trocar placed under verbal guidance. This was a blade was trocar. Patient was in Trendelenburg position and then a 8 mm trocar placed in the left lateral quadrant from previous laparoscopy incision and a 5 mm right from previous laparoscopy incisions. Both placements under direct observation the abdomen pelvis with inspected with above findings of filmy adhesions of the left side were taken down helping mobilize the bowel in the left the on the right is a 4-5 cm phlegmon densely densely adhesed to the pelvic sidewall and involving the small bowel this was carefully taken down with blunt dissection and use of the suction associate professor of automation as necessary. Care was made not to injure the bowel. The small bowel was released from the phlegmon in the pelvic sidewall and the cuff without incident then retracted up into the upper abdomen. The operative site was inspected closely was hemostatic copiously irrigated. At one point we did treat out the 8 mm left lateral trocar for 10 mm trocar with a cervicothoracic 10 mm suction device to obtain like a piece. Once his parents of the phlegmon had been adequately removed the procedure was then terminated. A Kanu Brandon needle was utilized to place a 0 Vicryl suture through the fascia at the 10 mm trocar to close the. Gas was then allowed to leave the abdomen of the trochars removed direct observation. Skin incisions were closed with 4-0 Vicryl and Dermabond as indicated. Previously placed sponge stick removed from the vagina previously placed Wise catheter to open drainage was removed. Patient was then awakened and experienced transferred up until very good condition Disposition she will go home today is to stay on her oral antibiotics Augmentin 875 3 times daily plan follow-up in 1 week.
== END 2019-06-18 16:00 | disposition home or self-care (01) ==
PROVIDERS: Visit Provider Obstetrics & Gynecology Female Pelvic Medicine and Reconstructive Surgery
PROC: (CPT 49320; principal; 2019-06-18 11:30)
DX: N73.9 Female pelvic inflammatory disease, unspecified (principal); Z87.891 Personal history of nicotine dependence
CPT/HCPCS: 44180; 12345; 80048; 85025; 88304; 96365; J0131; J0694; J1100; J2001; J2175; J2250; J2405; J2704; J2710; J2765; J3010; J3490

== ENCOUNTER 2020-08-25 14:53 | Outpatient (CLI) | payer OTHER, SELFPAY ==
--- NOTE | 2020-08-25 15:14 | XR_ITS ---
WS: [id number] Lumbar spine, 3 views, 08/25/2020 Clinical Data: CHRONIC LOW BACK PAIN Comparison: None. Findings: No compression fractures or subluxation is seen. There is disc space narrowing at L5-S1.. The transve rse processes and SI joints are normal. There is a slight dextroscoliosis of the lumbar spine. XR/XR lumbar spine 2-3V* [id number] Impression: Degenerative disc narrowing at L5-S1.
== END 2020-08-25 14:54 | disposition home or self-care (01) ==
PROVIDERS: Visit Provider Family Medicine
DX: M54.5 Low back pain (principal)
CPT/HCPCS: 72100

== ENCOUNTER → 2021-03-05 14:46 | Outpatient (BNVA) | payer OTHER, SELFPAY | PROVIDERS: Referring Provider Family Medicine; Visit Provider Podiatrist Foot & Ankle Surgery | DX: M25.571 Pain in right ankle and joints of right foot (principal) | CPT/HCPCS: 73610 ==

== ENCOUNTER 2024-12-11 12:40 | Emergency (ER) | payer OTHER, SELFPAY ==
[2024-12-11 12:48] VITALS: BP 123/81; PULSE 76; RESP 16; TEMP 36.8; O2SAT 97; BMI 36.6
[2024-12-11 13:03] VITALS: BP 117/94; PULSE 75; O2SAT 96
[2024-12-11] MEDS: tetanus-dipt-pertussis 0.5 mL SDV IM (13:08)
--- NOTE | 2024-12-11 13:10 | XRR_ITS ---
PROCEDURE INFORMATION: Exam: XR Right Femur Exam date and time: 12/11/2024 1:34 PM Age: 54 years old Clinical indication: Screening exam; Foreign body; Additional info: RT anterior distal femur laceration; Eval for foreign body TECHNIQUE: Imaging protocol: Radiologic exam of the right femur. Views: 2 views. COMPARISON: CT pelvis w con* [id number] 06/17/2019 4:13 PM FINDINGS: Bones/joints: Unremarkable. No acute fracture. Soft tissues: Large lower leg wound. No radiopaque foreign material. XR/XR femur RT min 2V* [id number] IMPRESSION: No radiopaque foreign material.
[2024-12-11] MEDS: lidocaine-epi 2% 20 mL INJ INJECTION ×2 (13:14→14:24)
[2024-12-11 14:00] VITALS: BP 117/72; PULSE 74; O2SAT 97
[2024-12-11 14:30] VITALS: PULSE 61; O2SAT 96
[2024-12-11 14:51] VITALS: BP 134/74; PULSE 70; O2SAT 99
--- NOTE | 2024-12-11 15:52 | W.ED.WOUNDLC ---
Documented by User: VITALY Cardona 12/11/24 15:58 HPI - Wound/Laceration General: Chief Complaint: Wound/Laceration Stated Complaint: Fell off deck Cut upper R leg Time Seen by Provider: 12/11/24 13:02 Source: patient Mode of arrival: ambulatory Limitations: no limitations History of Present Illness: Patient is a 54-year-old female who presents to the ED after sustaining laceration to her right anterior thigh. She reports falling off her porch and striking her leg on a nail. On arrival bleeding was controlled. She denies numbness, weakness, or difficulty ambulating. She is otherwise healthy and states that her tetanus is not up-to-date. Onset (ago): minute(s) Extremity Location: Right: thigh (Anterior) Place: outdoors Patient tetanus UTD: No Context: accidental Associated symptoms: Reports no associated symptoms; Denies chills, fever(s), nausea or vomiting Treatments prior to arrival: bandage Related Data Home Medications ?Medication ?Instructions ?Recorded ?Confirmed ibuprofen 200 mg capsule 200 mg PO BID PRN Pain 04/22/19 12/11/24 multivitamin 1 tab PO DAILY 01/26/20 12/11/24 duloxetine 20 mg capsule,delayed 20 mg PO DAILY 12/11/24 12/11/24 release levothyroxine 137 mcg tablet 137 mcg PO DAILY 12/11/24 12/11/24 tizanidine 4 mg tablet 4 mg PO BEDTIME 12/11/24 12/11/24 Previous Rx's ?Medication ?Instructions ?Recorded acetaminophen 325 mg tablet 650 mg (2 x 325 mg) PO Q6H PRN 05/30/19 Mild Pain Or Increase Temp Spectrum AFO to the right #1 ea 03/05/21 cephalexin 500 mg capsule 500 mg PO Q6H 5 days #20 caps 12/11/24 Allergies Allergy/AdvReac Type Severity Reaction Status Date / Time morphine AdvReac vomiting Verified 12/11/24 12:51 tramadol (From Ultram) AdvReac feels like Verified 12/11/24 12:51 she is disoriented Review of Systems General: Reports: 10 or more systems reviewed and unremarkable except in HPI and below Const: Denies: fever(s) or chills Card: Denies: chest pain Resp: Denies: dyspnea GI: Denies: abdominal pain, nausea, vomiting or diarrhea Musc: Denies: extremity pain or joint pain Skin/Breast: Reports: new lesions (Laceration to right anterior thigh); Denies: rash, skin pain or skin tenderness Neuro: Denies: headache(s) PFSH ED PFSH: Medical History Surgical menopause Taking Effexor. Stable patient is to continue home medications Hypothyroidism Stable patient is to continue home medications Surgical History S/P laparoscopy (03/28/19) With vaginal cuff repair of vaginal cuff dehiscence with small bowel evisceration S/P breast reconstruction, bilateral Following prophylactic mastectomy S/P mastectomy, bilateral Prophylactic. Had pre-cancerous breast biopsy S/P tubal ligation (1996) Performed at time of section S/P section (1996) with tubal ligation Hx of tonsillectomy History of hysterectomy (01/11/19) TLH with BSO. By Dr. 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 Underwent combined laparoscopy with vaginal repair of vaginal cuff uncomplicated Family History Mother Breast cancer Diabetes Thyroid disease Hypertension Grandmother Breast cancer Family/Other Breast cancer 2 maternal aunt Cervical cancer maternal aunt Father Diabetes Heart disease Thyroid disease Hypertension Sister Hypertension Other Suicide Social History Smoking and tobacco/nicotine status: never used tobacco/nicotine Second hand smoke exposure: No Alcohol intake: current Alcohol intake frequency: holidays/special occasions only Alcohol type: wine Substance/Drug Use: never Physical Exam Const: COMMON NORMALS: no acute distress, average body habitus, patient oriented x3, no limitations, healthy appearing, alert and well nourished HENMT: COMMON NORMALS: normocephalic and atraumatic HEAD & SCALP: normocephalic and atraumatic Neck/C-Spine: COMMON NORMALS: full ROM, no lymphadenopathy, supple and no meningeal signs Resp: COMMON NORMALS: normal respiratory effort, No use of accessory muscles and clear to auscultation bilaterally AUSCULTATION: clear to auscultation bilaterally Cardio: COMMON NORMALS: regular rate and regular rhythm RATE: regular rate RHYTHM: regular rhythm Extremity: COMMON NORMALS: full ROM and capillary refill normal Neuro: COMMON NORMALS: patient oriented x3, moves all extremities, no focal motor deficits and no sensory deficits noted SENSORIUM/ORIENTATION: Yes alert MENINGEAL SIGNS: Yes no meningeal signs Skin: COMMON NORMALS: turgor normal NARRATIVE SKIN EXAM: Large, 13 cm laceration overlying the distal right anterior thigh with exposed adipose tissue. However does not appear to lacerate through deep enough to the muscle and there is no evidence of vascular injury. No obvious foreign body. No active bleeding. GENERAL SKIN EXAM: turgor normal Procedures Laceration Laceration 1: Site: lower extremity Side (If applicable): right (thigh) Size (cm): 13 Description: linear and clean Depth: simple, single layer (exposed adipose tissue) Local Anesthetic: lidocaine 1% and with epi Amount of anesthesia used (mL): 25 Pre-repair: wound explored, irrigated extensively, deep structures intact and wound margins revised Skin layer closed with: nylon Size (cm): 3-0 Number of sutures: 16 Technique: simple, interrupted Subcutaneous layer closed with: vicryl Size: 3-0 Number of sutures: 5 Course Vital Signs: Vital signs: Vital Signs Temperature 98.2 F 12/11/24 12:48 Pulse Rate 70 12/11/24 14:51 Respiratory Rate 16 12/11/24 12:48 Blood Pressure 134/74 12/11/24 14:51 Pulse Oximetry 99 12/11/24 14:51 Oxygen Delivery Me thod Room Air 12/11/24 14:30 MDM - Wound/Laceration Medical Decision Making This is a 54-year-old female with large right anterior thigh laceration approximately 13 cm in length, with exposed adipose tissue but no evidence of muscle involvement, vascular injury, or compromise of underlying structures. On exam, she had intact distal strength and sensation and remained ambulatory, with normal neurovascular status before and after repair. Wound was copiously irrigated with approximately 600 cc of fluid and repaired in layers using five 3-0 Vicryl sutures to approximate the deep tissue and 16 simple interrupted 3-0 nylon sutures to close the superficial layer. The wound was dressed with a sterile dressing. Prophylactic antibiotics were prescribed given the size, location, and mechanism of injury. She tolerated the procedure well, and postrepair neurovascular exam remained intact. She is stable for discharge with instruction for wound care, suture removal, signs of infection to monitor for, and return precautions. An x-ray was obtained preemptively to rule out any foreign body, this was negative. Noted to be ambulatory out of the emergency department. Lab Data Radiology Impressions Femur X-Ray 12/11/24 13:10 IMPRESSION: No radiopaque foreign material. All radiology interpretation(s) finalized by discharge Discharge Plan Discharge Patient Disposition: Home Clinical Impression: Laceration of right thigh Qualifiers: Encounter type: initial encounter Qualified Code(s): S71.111A - Laceration without foreign body, right thigh, initial encounter Condition: Stable Prescriptions: New cephalexin 500 mg capsule 500 mg PO Q6H 5 Days Qty: 20 0RF No Action ibuprofen 200 mg capsule 200 mg PO BID PRN (Reason: Pain) (DME) Spectrum AFO to the right See Rx Instructions .Route .MEDSUPPLY Qty: 1 0RF Rx Instructions: As directed [facility] multivitamin Tablet 1 tab PO DAILY acetaminophen 325 mg Tablet 650 mg PO Q6H PRN (Reason: Mild Pain Or Increase Temp) 0RF levothyroxine 137 mcg tablet 137 mcg PO DAILY tizanidine 4 mg tablet 4 mg PO BEDTIME duloxetine 20 mg capsule,delayed release(DR/EC) 20 mg PO DAILY Discharge Orders: Discharge ED (Routine); Ordered 12/11/24 Ordered By: Fabio Prieto Referrals: Zeina Carlos, [employer] [Primary Care Provider, Nurse Practitioner] Patient Instructions: Patient Portal & Geovanni Instructions Activity Restrictions/Additional Instructions: Thigh Laceration Discharge Wound Care Instructions: - The right thigh laceration was repaired with layered closure using 5 Vicryl sutures and 16 simple interrupted sutures after thorough irrigation with 600 mL normal saline. Tetanus immunization was updated and no foreign body was detected on X-ray. Dressing Management: - Maintain the sterile dressing applied in the emergency department for the first 24?48 hours. After this period, the wound may be gently cleansed with mild soap and water; there is no increased risk of infection with early gentle cleansing. - After cleansing, reapply a clean, non-adherent dressing (e.g., Telfa or similar) to maintain a moist environment, which promotes optimal healing. - Topical antibiotic ointment (e.g., Polysporin or petrolatum) may be applied to the wound before dressing to maintain moisture and reduce infection risk, though evidence does not show superiority over petrolatum alone in clean wounds. - Change the dressing daily or sooner if it becomes wet or soiled. Activity and Suture Care: - Avoid strenuous activity, heavy lifting, or exercise that places tension on the thigh for at least 7?10 days or until suture removal, as excessive movement may disrupt wound healing. - Keep the wound covered during activities that may expose it to dirt or trauma. Suture Removal: - Non-absorbable sutures on the thigh are typically removed in 10?14 days, depending on wound healing and tension. Absorbable Vicryl sutures do not require removal. Pain Management: - Mild pain is expected; acetaminophen or NSAIDs may be used as needed, unless contraindicated. Signs of Infection and Return Precautions: - Monitor for signs of infection, including: - Increasing redness, warmth, or swelling around the wound - Purulent drainage or foul odor - Worsening pain - Fever or chills - Red streaks extending from the wound - Separation of wound edges - If any of these symptoms develop, or if there is uncontrolled bleeding, loss of function, or new numbness, seek prompt medical attention. Antibiotic Use: - Routine prophylactic antibiotics are not indicated for simple, well-irrigated lacerations in immunocompetent patients. Antibiotics should only be initiated if clinical signs of infection develop or if patient-specific risk factors arise. Follow-Up: - Schedule follow-up for suture removal and wound assessment in 10?14 days, or sooner if complications arise. Additional Considerations: - Scarring is expected; sun protection after healing may minimize hyperpigmentation. - If bleeding recurs, apply firm pressure for 10?15 minutes. Contact Information: - For any concerns or questions, contact the clinic or emergency department. Print Language: Niuean Coding Level of Care Code ED Analytics Associate for Janay Peña Documented by User: Gerry Moreno, 12/13/24 07:07 HPI - Wound/Laceration General: Chief Complaint: Wound/Laceration Stated Complaint: Fell off deck Cut upper R leg Time Seen by Provider: 12/11/24 13:02 Related Data Home Medications ?Medication ?Instructions ?Recorded ?Confirmed ibuprofen 200 mg capsule 200 mg PO BID PRN Pain 04/22/19 12/11/24 multivitamin 1 tab PO DAILY 01/26/20 12/11/24 duloxetine 20 mg capsule,delayed 20 mg PO DAILY 12/11/24 12/11/24 release levothyroxine 137 mcg tablet 137 mcg PO DAILY 12/11/24 12/11/24 tizanidine 4 mg tablet 4 mg PO BEDTIME 12/11/24 12/11/24 Previous Rx's ?Medication ?Instructions ?Recorded acetaminophen 325 mg tablet 650 mg (2 x 325 mg) PO Q6H PRN 05/30/19 Mild Pain Or Increase Temp Spectrum AFO to the right #1 ea 03/05/21 cephalexin 500 mg capsule 500 mg PO Q6H 5 days #20 caps 12/11/24 Allergies Allergy/AdvReac Type Severity Reaction Status Date / Time morphine AdvReac vomiting Verified 12/11/24 12:51 tramadol (From Ultram) AdvReac feels like Verified 12/11/24 12:51 she is disoriented [facility] ED PFSH: Medical History Surgical menopause Taking Effexor. Stable patient is to continue home medications Hypothyroidism Stable patient is to continue home medications Surgical History S/P laparoscopy (03/28/19) With vaginal cuff repair of vaginal cuff dehiscence with small bowel evisceration S/P breast reconstruction, bilateral Following prophylactic mastectomy S/P mastectomy, bilateral Prophylactic. Had pre-cancerous breast biopsy S/P tubal ligation (1996) Performed at time of section S/P section (1996) with tubal ligation Hx of tonsillectomy History of hysterectomy (01/11/19) TLH with BSO. By Dr. 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 Underwent combined laparoscopy with vaginal repair of vaginal cuff uncomplicated Family History Mother Breast cancer Diabetes Thyroid disease Hypertension Grandmother Breast cancer Family/Other Breast cancer 2 maternal aunt Cervical cancer maternal aunt Father Diabetes Heart disease Thyroid disease Hypertension Sister Hypertension Other Suicide Social History Smoking and tobacco/nicotine status: never used tobacco/nicotine Second hand smoke exposure: No Alcohol intake: current Alcohol intake frequency: holidays/special occasions only Alcohol type: wine Substance/Drug Use: never Course Vital Signs: Vital signs: Vital Signs Temperature 98.2 F 12/11/24 12:48 Pulse Rate 70 12/11/24 14:51 Respiratory Rate 16 12/11/24 12:48 Blood Pressure 134/74 12/11/24 14:51 Pulse Oximetry 99 12/11/24 14:51 Oxygen Delivery Me thod Room Air 12/11/24 14:30 MDM - Wound/Laceration Medical Decision Making This is a 54-year-old female with large right anterior thigh laceration approximately 13 cm in length, with exposed adipose tissue but no evidence of muscle involvement, vascular injury, or compromise of underlying structures. On exam, she had intact distal strength and sensation and remained ambulatory, with normal neurovascular status before and after repair. Wound was copiously irrigated with approximately 600 cc of fluid and repaired in layers using five 3-0 Vicryl sutures to approximate the deep tissue and 16 simple interrupted 3-0 nylon sutures to close the superficial layer. The wound was dressed with a sterile dressing. Prophylactic antibiotics were prescribed given the size, location, and mechanism of injury. She tolerated the procedure well, and postrepair neurovascular exam remained intact. She is stable for discharge with instruction for wound care, suture removal, signs of infection to monitor for, and return precautions. An x-ray was obtained preemptively to rule out any foreign body, this was negative. Noted to be ambulatory out of the emergency department. Chart reviewed and patient discussed with midlevel. Agree with assessment and plan. Lab Data Radiology Impressions Femur X-Ray 12/11/24 13:10 IMPRESSION: No radiopaque foreign material. Discharge Plan Discharge Patient Disposition: Home Clinical Impression: Laceration of right thigh Qualifiers: Encounter type: initial encounter Qualified Code(s): S71.111A - Laceration without foreign body, right thigh, initial encounter Condition: Stable Prescriptions: New cephalexin 500 mg capsule 500 mg PO Q6H 5 Days Qty: 20 0RF No Action ibuprofen 200 mg capsule 200 mg PO BID PRN (Reason: Pain) (DME) Spectrum AFO to the right See Rx Instructions .Route .MEDSUPPLY Qty: 1 0RF Rx Instructions: As directed J P [facility] O multivitamin Tablet 1 tab PO DAILY acetaminophen 325 mg Tablet 650 mg PO Q6H PRN (Reason: Mild Pain Or Increase Temp) 0RF levothyroxine 137 mcg tablet 137 mcg PO DAILY tizanidine 4 mg tablet 4 mg PO BEDTIME duloxetine 20 mg capsule,delayed release(DR/EC) 20 mg PO DAILY Discharge Orders: Discharge ED (Routine); Ordered 12/11/24 Ordered By: Fabio Prieto Referrals: Zeina Carlos FNP [Primary Care Provider, Nurse Practitioner] Patient Instructions: Patient Portal & Geovanni Instructions Activity Restrictions/Additional Instructions: Thigh Laceration Discharge Wound Care Instructions: - The right thigh laceration was repaired with layered closure using 5 Vicryl sutures and 16 simple interrupted sutures after thorough irrigation with 600 mL normal saline. Tetanus immunization was updated and no foreign body was detected on X-ray. Dressing Management: - Maintain the sterile dressing applied in the emergency department for the first 24?48 hours. After this period, the wound may be gently cleansed with mild soap and water; there is no increased risk of infection with early gentle cleansing. - After cleansing, reapply a clean, non-adherent dressing (e.g., Telfa or similar) to maintain a moist environment, which promotes optimal healing. - Topical antibiotic ointment (e.g., Polysporin or petrolatum) may be applied to the wound before dressing to maintain moisture and reduce infection risk, though evidence does not show superiority over petrolatum alone in clean wounds. - Change the dressing daily or sooner if it becomes wet or soiled. Activity and Suture Care: - Avoid strenuous activity, heavy lifting, or exercise that places tension on the thigh for at least 7?10 days or until suture removal, as excessive movement may disrupt wound healing. - Keep the wound covered during activities that may expose it to dirt or trauma. Suture Removal: - Non-absorbable sutures on the thigh are typically removed in 10?14 days, depending on wound healing and tension. Absorbable Vicryl sutures do not require removal. Pain Management: - Mild pain is expected; acetaminophen or NSAIDs may be used as needed, unless contraindicated. Signs of Infection and Return Precautions: - Monitor for signs of infection, including: - Increasing redness, warmth, or swelling around the wound - Purulent drainage or foul odor - Worsening pain - Fever or chills - Red streaks extending from the wound - Separation of wound edges - If any of these symptoms develop, or if there is uncontrolled bleeding, loss of function, or new numbness, seek prompt medical attention. Antibiotic Use: - Routine prophylactic antibiotics are not indicated for simple, well-irrigated lacerations in immunocompetent patients. Antibiotics should only be initiated if clinical signs of infection develop or if patient-specific risk factors arise. Follow-Up: - Schedule follow-up for suture removal and wound assessment in 10?14 days, or sooner if complications arise. Additional Considerations: - Scarring is expected; sun protection after healing may minimize hyperpigmentation. - If bleeding recurs, apply firm pressure for 10?15 minutes. Contact Information: - For any concerns or questions, contact the clinic or emergency department. Print Language: Niuean Coding Level of Care Code ED Analytics Associate for Janay Peña
== END 2024-12-11 14:52 | disposition home or self-care (01) ==
PROVIDERS: Emergency Provider Physician Assistant; PCP Nurse Practitioner Family
DX: S71.111A Laceration without foreign body, right thigh, initial encounter (principal); W17.89XA Other fall from one level to another, initial encounter
CPT/HCPCS: 12035; 73552; 90471; 90715; 99283; J9999